=== PATIENT | female | born 1960 | race Caucasian/White ===

== ENCOUNTER 2016-03-13 08:58 | Emergency (ER) | payer OTHER ==
[~2016-03-13] VITALS: Ht 170.2 cm; Wt 73.0 kg
[2016-03-13] MEDS ORDERED: TRAMADOL HCL50 MG PO (11:50)
[2016-03-13 12:07] VITALS: BP 119/67
== END 2016-03-13 12:07 | disposition home or self-care (01) ==
LOC: EME 08:58
DX: S80.02XA Contusion of left knee, initial encounter (principal); S60.511A Abrasion of right hand, initial encounter; S60.512A Abrasion of left hand, initial encounter; W18.09XA Striking against other object with subsequent fall, initial encounter; Y93.39 Activity, other involving climbing, rappelling and jumping off
CPT/HCPCS: 73564; 99281; 99283

== ENCOUNTER 2016-07-06 14:12 | Emergency (ER) | payer OTHER ==
[~2016-07-06] VITALS: Ht 170.2 cm; Wt 72.0 kg
[~2016-07-06 14:12] MED LIST: TRAMADOL HCL50 MG PO
[2016-07-06 14:49] LABS: HEMATOCRIT 38.2 % (36.0-46.0); MCH 30.8 PG (29.0-34.0); MCHC 33.5 G/DL (30.0-36.0); MCV 91.8 FL (83-99); MEAN PLAT.VOLUME 10.7 uM^3 (9.5-12.4); PLATELET COUNT 252 K/uL (156-360); RBC DIS.WIDTH-SD 40.2 % (39-53); RED BLOOD COUNT 4.16 M/uL (3.80-5.20); WHITE BLOOD COUNT 6.9 K/uL (4.1-10.2)
[2016-07-06 15:00] LABS: CHLORIDE 106 mEq/L (99-109); POTASSIUM 4.5 mEq/L (3.7-5.4); SODIUM 140 mEq/L (136-147)
[2016-07-06 15:02] LABS: GLUCOSE 97 mg/dL (70-99)
[2016-07-06 15:03] LABS: ANION GAP 10 MEQ/L (2-14)
[2016-07-06 15:04] LABS: TOTAL BILIRUBIN 0.4 mg/dL (0.0-1.0)
[2016-07-06 15:05] LABS: ALKALINE PHOSPHATASE 95 IU/L (3-129)
[2016-07-06 15:06] LABS: GFR ESTIMATE (CALCULATED) 50 mL/min/
[2016-07-06 15:07] LABS: UREA NITROGEN (BUN) 19 mg/dL (9-23)
[2016-07-06 15:13] LABS: TROP-I INTERPRETATION NEGATIVE; TROPONIN-I < 0.01 ng/mL (0.0-0.30)
[2016-07-06 18:44] LABS: TROP-I INTERPRETATION NEGATIVE; TROPONIN-I < 0.01 ng/mL (0.0-0.30)
[2016-07-06 19:38] VITALS: BP 106/63
== END 2016-07-06 19:39 | disposition home or self-care (01) ==
LOC: EME 14:12
PROVIDERS: Emergency Medicine
DX: R07.89 Other chest pain (principal)
CPT/HCPCS: 71010; 80053; 84484; 85027; 93005; 99281; 99284

== ENCOUNTER 2017-07-03 11:29 | Day surgery (SDC) | payer OTHER ==
[~2017-07-03] VITALS: Ht 170.2 cm; Wt 77.1 kg
[~2017-07-03 11:29] MED LIST changes: +FLOMAX0.4 MG PO; +WELLBUTRIN SR200 MG PO
[2017-07-03 12:43] VITALS: BP 118/68
[2017-07-03 15:35] VITALS: BP 123/63
[2017-07-03 15:59] VITALS: BP 121/72
== END 2017-07-03 16:00 | disposition home or self-care (01) ==
LOC: SDC 11:29
PROVIDERS: Urology
DX: N13.2 Hydronephrosis with renal and ureteral calculous obstruction (principal); F41.8 Other specified anxiety disorders; Z87.891 Personal history of nicotine dependence; Z88.2 Allergy status to sulfonamides; Z87.442 Personal history of urinary calculi
CPT/HCPCS: 74018; 82365 90; C2625; J1100; J1580; J2250; J2405; J3010; Q0175